=== PATIENT | female | born 1970 | race Caucasian/White ===

== ENCOUNTER 2020-02-09 09:24 | Outpatient (REF) | payer OTHER, SELFPAY ==
--- NOTE | 2020-02-09 | US_ITS ---
EXAMINATION: ABDOMINAL ULTRASOUND CLINICAL INFORMATION: Abdomen and back pain COMPARISON: Previous CT of the abdomen and pelvis August 2016 TECHNIQUE: Grayscale imaging of the abdomen FINDINGS: The head and body the pancreas are normal. The tail is not well visualized due to bowel gas. The aorta and IVC are normal. The liver is normal in size, shape and contour. No focal liver lesion or intrahepatic biliary duct dilatation is seen. The gallbladder is normal. There are no gallstones. The common bile duct is normal in caliber and measures 4 mm diameter. The kidneys are normal in contour and symmetric in size with the right kidney measuring 12.3 and the left 11.8 cm in length. There is a 2 mm echogenic focus with twinkle artifact in the midpole suggestive of a stone. There is a 1.9 x 1.6 x 1.6 cm complex cyst with septation in the upper to midpole. This does not appear appreciably changed in size from previous CT August 2016. There is a 2.3 x 2.1 x 2.1 cm complex cyst in the lower pole with septation and some internal echoes. This is new compared to 2017 CT. Spleen is unremarkable. There is no ascites. IMPRESSION: Question small right renal stone. Two complex left renal cysts. The larger cyst in the lower pole measuring 2.3 x 2.1 x 2.1 cm is new when compared with previous CT from August 2016. Follow-up dedicated renal CT or MRI with and without contrast is recommended. Limited visualization of the tail of the pancreas.
== END 2020-02-09 09:25 | disposition home or self-care (01) ==
LOC: HO.US 09:24
PROVIDERS: PCP Internal Medicine; Visit Provider Internal Medicine
DX: R10.9 Unspecified abdominal pain (principal); M54.9 Dorsalgia, unspecified
CPT/HCPCS: 76700

== ENCOUNTER 2020-03-05 17:26 | Outpatient (REF) | payer OTHER, SELFPAY | END 2020-03-05 17:27 | disposition home or self-care (01) | LOC: HO.LNP 17:26 | PROVIDERS: Visit Provider Internal Medicine | DX: Z20.828 Contact with and (suspected) exposure to other viral communicable diseases (principal) | CPT/HCPCS: U0003 ==